=== PATIENT | female | born 1950 | race African-American/Black ===

== ENCOUNTER 2020-08-01 12:13 | Emergency (ER) | payer OTHER, BC, MEDICARE ==
[~2020-08-01] VITALS: Ht 162.6 cm; Wt 88.5 kg
[2020-08-01 13:03] LABS: ABSOLUTE NEUTROPHILS 4.8 thou/uL (1.4-8.2); BASOPHILS 0.8 % (0.0-2.0); HEMATOCRIT 37.9 % (37.0-47.0); HEMOGLOBIN 12.9 gm/dL (12.0-15.0); LYMPHOCYTES 25.8 % (24.0-44.0); MCH 32.1 pg (26.0-34.0); MCHC 34.2 g/dL (28.0-37.0); MONOCYTES 7.1 % (1.0-8.0); PLATELET COUNT 243 thou/uL (150-400); POLYS 65.3 % (36.0-66.0); RBC 4.03 mil/uL (4.20-5.00); RDW 14.5 % (10.5-14.5); WBC 7.4 thou/uL (4.0-11.0)
[2020-08-01 13:28] LABS: CALCIUM 9.2 mg/dL (8.5-10.1); POTASSIUM 4.1 mmol/L (3.5-5.1)
[2020-08-01 14:51] VITALS: BP 153/102
--- NOTE | 2020-08-01 15:43 | EKG ---
[place] [address] [facility] [place] [address] ELECTROCARDIOGRAM REPORT Name: DANIELLE MORRIS Room #: DEP [facility]#: [id number] Admission: 08/01/20 Attend Phys: Discharge: 08/01/20 Date of : 54 Report #: [id number] [facility] ED Test Date: 2020-08-01 Test Time: 12:19:13 Pat Name: DANIELLE MORRIS Department: Room: Gender: F [employer]em [employer]her: : 1950 Requested By: dEy Finnegan Order Number: [id number] MD: Mitch Joiner Measurements Intervals [place] Rate: 77 P: 76 [place]: 158 QRS: -13 QRSD: 97 T: 50 QT: 370 QTc: 419 Interpretive Statements Sinus rhythm Abnormal R-wave progression, early transition Borderline T abnormalities, lateral leads Baseline wander in lead(s) II,III,aVF,V4 No previous ECG available for comparison Electronically Signed On 08-01-2020 15:42:51 CDT by Mitch Joiner [email or web address] <ELECTRONICALLY SIGNED> By: Mitch Joiner MD, [facility] 08/01/20 1542 121 18 Mitch Joiner MD, [facility] /EPI
== END 2020-08-01 14:51 | disposition home or self-care (01) ==
LOC: ER 12:13
PROVIDERS: Nurse Practitioner
DX: R20.0 Anesthesia of skin (principal); R20.2 Paresthesia of skin; M79.641 Pain in right hand; M19.90 Unspecified osteoarthritis, unspecified site; I10 Essential (primary) hypertension; E78.5 Hyperlipidemia, unspecified; Z90.89 Acquired absence of other organs; Z91.048 Other nonmedicinal substance allergy status